=== PATIENT | female | born 1950 | race Caucasian/White ===

== ENCOUNTER 2017-03-31 05:13 | Emergency (ER) | payer OTHER ==
[~2017-03-31] VITALS: Ht 152.4 cm; Wt 81.0 kg
[~2017-03-31 05:13] MED LIST: CYCL-319 PO; HYDR-3498 PO; IBUP-1542 PO
[2017-03-31 05:16] VITALS: Ht 152.4 cm; Wt 81.0 kg
--- NOTE | 2017-03-31 06:44 | ERD ---
ER Documentation Chief Complaint Date/Time DATE: 03/31/17 TIME: 06:42 Chief Complaint Pt reports L flank pain since 1800 03/30/17 HPI 66-year-old female who presents emergency department for left flank pain started last night at around 6 PM. Stated that her left flank pain radiates to her left upper abdomen/mid epigastric area. Denies any trauma. Vomited thrice for the past 24 hours with nonbilious and nonbloody vomitus. Denies headache, loss of consciousness, dizziness, blurry vision, changes in vision, photophobia, facial pain, ear pain, throat pain, difficulty swallowing, neck pain, shoulder pain, chest pain, cough, hemoptysis, loss of appetite, hematochezia, diarrhea, constipation, urinary symptoms, , the possibility of being , bladder and bowel incontinences, extremity weakness, extremity tenderness, numbness or tingling sensation, difficulty walking, recent travel, recent exposure to illness, recent antibiotic use in the last 3 months, fever, chills. Allergy: No known drug allergies. PMH: Hypertension. Family medical history: Denies. Medications: Enalapril. Also takes Rumiquin, a cardiovascular supplement. Surgery: Hysterectomy. Primary Social History: Retired. Denies smoking, use of alcohol, use of illegal drugs. ROS All systems reviewed and are negative except as per history of present illness. Medications Home Meds Active Scripts Acetaminophen* (Tylophen*) 500 Mg Capsule, 1 CAP PO Q6H Y for PAIN AND OR ELEVATED TEMP, #20 CAP Prov:PRAVEENA SUN 03/31/17 Ondansetron Hcl* (Zofran*) 4 Mg Tablet, 4 MG PO Q8H Y for NAUSEA AND/OR VOMITING , #30 TAB Prov:PASILAPRAVEENA CHAMORRO F 03/31/17 Tramadol HCl (Tramadol HCl) 50 Mg Tablet, 50 MG PO Q4 Y for PAIN, #20 TAB Prov:JAMESILAPRAVEENA CHAMORRO F 03/31/17 Hydrocodone Bit-Acetaminophen* ([place]*) 5-325 Mg Tab, 1 TAB PO Q6 Y for PAIN, # 20 TAB Prov:LAVON VIRAMONTES MD 05/26/15 Cyclobenzaprine Hcl* (Cyclobenzaprine Hcl*) 10 Mg Tablet, 10 MG PO TID, #20 TAB Prov:LAVON VIRAMONTES MD 05/26/15 Hydrocodone Bit-Acetaminophen* ([place]*) 5-325 Mg Tab, 1 TAB PO Q6 Y for PAIN, # 20 TAB Prov:LAVON VIRAMONTES MD 04/13/15 Ibuprofen* (Motrin*) 600 Mg Tab, 600 MG PO Q6, #30 TAB Prov:LAVON VIRAMONTES MD 04/13/15 Hydrocodone Bit-Acetaminophen* ([place]*) 5-325 Mg Tab, 1 TAB PO Q6 Y for PAIN, # 10 TAB Prov:ELVIA ABREU C 04/09/15 Ibuprofen* (Motrin*) 600 Mg Tab, 600 MG PO Q6, #30 TAB Prov:LOIS,ELVIA C 04/09/15 Allergies Allergies: Coded Allergies: No Known Allergy (Unverified , 04/13/15) PMhx/Soc Medical and Surgical Hx: pt denies Medical Hx History of Surgery: Yes (HYSTERECTOMY ) Anesthesia Reaction: No Hx Neurological Disorder: No Hx Respiratory Disorders: No Hx Cardiac Disorders: Yes (HTN) Hx Psychiatric Problems: No Hx Miscellaneous Medical Probl: No Hx Alcohol Use: No Hx Substance Use: No Hx Tobacco Use: No Physical Exam Vitals Vital Signs Date Time Temp Pulse Resp B/P Pulse Ox O2 Delivery O2 Flow Rate FiO2 03/31/17 05:16 97.8 99 18 137/92 100 Physical Exam CONSTITUTIONAL: Well-appearing; well-nourished; in no apparent distress. HEAD: Normocephalic; atraumatic. EYES: Conjunctiva clear, sclera non-icteric, EOM intact. PERRL Ears: Hearing intact. EACs clear, TMs non-bulging, non-inflamed, translucent & mobile, ossicles normal appearance, No obstructions, no erythema, no discharges Nose: No obstructions. No polyps. No external lesions. Mucosa non-inflamed. No external lesions, septum and turbinates normal. No rhinorrhea. No discharges. Frontal sinus is non-tender to palpation. Maxillary sinus is non-tender to palpation. MOUTH: Moist mucous membranes, no lesion, no obstructions, no vesicles, no thrush, patent airway Throat: Uvula in midline. Right tonsil is +1 with no erythema, no exudate. Left tonsil is +1 with no erythema, no exudate. Tolerating secretions well. Good gag reflex. Patent airway. Neck: Supple, without lesions, bruits, or adenopathy. No mass. Thyroid non- enlarged and non-tender to palpation. CHEST: Symmetrical chest. Respirations even and not labored. No retractions noted. CARDIOVASCULAR: Normal S1, S2. RRR. No murmurs, gallops. RESPIRATORY: Normal chest excursion with respiration; breath sounds clear and equal bilaterally; no wheezes, rhonchi, or rales. Breathing even and unlabored. Speaking in clear, full, and complete sentences w/ ease. ABDOMEN: Normal bowel sounds normal. Soft, round, non-distended, non-guarding, no tenderness, no rebound, no organomegaly, no masses, no pulsating abdominal mass. No hernia. No peritoneal signs. : Left-sided CVA tenderness on palpation. BACK: Symmetrical shoulder. Spine is midline without deformity, tenderness. No evidence of trauma or deformity. PELVIS: Stable pelvis. No evidence of trauma or deformity. MUSCULOSKELETAL: Normal gait and station. No misalignment, asymmetry, crepitation, defects, tenderness, masses, effusions, decreased range of motion, instability, atrophy or abnormal strength or tone in the head, neck, spine, ribs , pelvis or extremities. No calf tenderness. NEUROVASCULAR: Distal pulses are present. Pedal pulse are present, equal, and normal. Capillary refills are < 2 seconds. NEUROLOGIC: Alert and oriented x4. Speaks full and clear sentences. Cranial Nerves II-XII normal. Sensation to pain, touch, and proprioception normal. Grossly unremarkable. No neurologic deficits. Romberg test is negative. PSYCHOLOGICAL: The patients mood and manner are appropriate. No hallucinations , delusions. Not SI. Not HI. Has the capacity to decide for self SKIN: Normal for age and ethnicity; warm; dry; good turgor; no apparent lesions or exudates. No rashes, hives, discoloration. Intact. Result Diagram: 03/31/17 0645 03/31/17 0645 Results 24 hrs Laboratory Tests Test 03/31/17 06:45 03/31/17 07:08 White Blood Count 10.910^3/ul Red Blood Count 4.6510^6/ul Hemoglobin 12.5g/dl Hematocrit 39.2% Mean Corpuscular Volume 84.3fl Mean Corpuscular Hemoglobin 26.9pg Mean Corpuscular Hemoglobin Concent 31.9g/dl Red Cell Distribution Width 14.5% Platelet Count 39592^3/UL Mean Platelet Volume 11.1fl Neutrophils % 75.4% Lymphocytes % 18.3% Monocytes % 4.8% Eosinophils % 0.7% Basophils % 0.4% Nucleated Red Blood Cells % 0.0/100WBC Neutrophils # 8.310^3/ul Lymphocytes # 2.010^3/ul Monocytes # 0.510^3/ul Eosinophils # 0.110^3/ul Basophils # 0.010^3/ul Nucleated Red Blood Cells # 0.010^3/ul Prothrombin Time 12.8Sec Prothrombin Time Ratio 1.0 INR International Normalized Ratio 0.96 Activated Partial Thromboplast Time 29.2Sec Sodium Level 144mmol/L Potassium Level 4.3mmol/L Chloride Level 104mmol/L Carbon Dioxide Level 25mmol/L Anion Gap 19 Blood Urea Nitrogen 14mg/dl Creatinine 0.66mg/dl Glucose Level 135mg/dl Calcium Level 9.8mg/dl Total Bilirubin 0.3mg/dl Direct Bilirubin 0.00mg/dl Indirect Bilirubin 0.3mg/dl Aspartate Amino Transf (AST/SGOT) 33IU/L Alanine Aminotransferase (ALT/SGPT) 29IU/L Alkaline Phosphatase 168IU/L Troponin I < 0.012ng/ml Total Protein 8.6g/dl Albumin 4.3g/dl Globulin 4.30g/dl Albumin/Globulin Ratio 1.00 Amylase Level 63U/L Lipase 55U/L Urine Color STRAW Urine Clarity CLEAR Urine pH 6.0 Urine Specific [place] 1.006 Urine Ketones NEGATIVEmg/dL Urine Nitrite NEGATIVEmg/dL Urine Bilirubin NEGATIVEmg/dL Urine Urobilinogen NEGATIVEmg/dL Urine Leukocyte Esterase NEGATIVELeu/ul Urine Microscopic RBC 1/HPF Urine Microscopic WBC 1/HPF Urine Bacteria FEW/HPF Urine Hemoglobin 2+mg/dL Urine Glucose NEGATIVEmg/dL Urine Total Protein NEGATIVEmg/dl Current Medications Medications (Trade) Dose Ordered Sig/Rj Route PRN Reason Start Time Stop Time Status Last Admin Dose Admin Ondansetron HCl (Zofran Inj) 4 mg ONCE STAT IV 03/31/17 06:46 03/31/17 06:50 DC 03/31/17 07:15 Morphine Sulfate 4 mg 4 mg ONCE STAT IV 03/31/17 06:46 03/31/17 06:50 DC 03/31/17 07:15 Sodium Chloride (NS) 100 ml @ ud STK-MED ONCE .ROUTE 03/31/17 08:18 03/31/17 08:19 DC Iohexol 150 ml 150 ml STK-MED ONCE .ROUTE 03/31/17 08:18 03/31/17 08:19 DC Sodium Chloride (NS) 500 ml @ 500 mls/hr Q1H ONCE IV 03/31/17 10:00 03/31/17 10:59 DC 03/31/17 10:55 Procedures/MDM Examination: See physical examination. Disease process, medical treatment was explained to the patient and family member. They verbalized understanding and agreed with the diagnostic tests, medical treatment, and follow-up care. EKG: Normal sinus rhythm with a ventricular rate of 79 bpm. No evidence of acute myocardial infarction. No evidence of ischemia. Radiology: CT of the abdomen and pelvis with IV contrast Impression: Mildly obstructive 3 mm calculus within the left distal ureter at the ureterovesicular junction with mild dilatation of the upstream left ureter with mild left hydronephrosis. Mild left emmie-nephric fat stranding. Few 2 mm calculi within the inferior pole of the right kidney without hydronephrosis. Diverticulosis without evidence of acute diverticulitis. Mild to moderate atherosclerotic vascular disease. Post surgical changes suggestive prior hysterectomy. Several subacute acute/subacute chronic to chronic fractures of the pelvis, thoracic vertebral bodies, and ribs as described above. Chest x-ray Impression: 1.1 cm nodular calcified density projected over the left lower lung is likely related to the adjacent rib and may represent callus formation from previous rib fracture. Atherosclerotic aortic calcification. Otherwise no acute cardiopulmonary disease. Blood works: Reviewed. Urinalysis: Reviewed. Treatment: IV insertion. Zofran. Normal saline 500 cc IV bolus. Re-evaluation: Denies headache, dizziness, blurry vision, neck pain, shoulder pain, chest pain, back pain, abdominal pain, nausea, vomiting. No episode of emesis in the emergency department. Alert and oriented 4. Speaks full and clear sentences. Respirations even and unlabored. Lung sounds clear to auscultation. Active bowel sounds. There is no right upper/right lower/ epigastric/left upper/left lower abdominal tenderness and light and deep palpation. Negative on Rovsings sign. Negative [place] sign. No peritoneal signs. Ambulatory with steady gait. No neurovascular deficits. No neurological deficits. Consultation: None. Differential diagnosis: Acute myocardial infarction versus acute coronary syndrome versus pancreatitis versus cholecystitis versus nephrolithiasis versus pyelonephritis versus sciatica versus musculoskeletal spasms Medical decision makin-year-old female who presents emergency department for left flank pain started last night at around 6 PM. Stated that her left flank pain radiates to her left upper abdomen/mid epigastric area. Denies any trauma. Vomited thrice for the past 24 hours with nonbilious and nonbloody vomitus. Patient's complaint, patient history about her complaint, my physical findings, diagnostic test results, my reevaluation are consistent my final diagnosis of ureteral calculus, diverticulosis, old rib fracture, abdominal pain. Case and diagnostic tests results was discussed with supervising physician , Dr. Lavon Viramontes who agreed with my medical decision making. Medications prescribed are the following: Tramadol. Zofran. Patient and family member are made aware of the side effects and adverse reactions of the medications prescribed. Instructed on when to seek emergent and medical attention in case allergic/anaphylactic reactions or severe side effects and or adverse reactions to medications. Patient and family member verbalized understanding. Patient instructed Instructed to follow-up with his PCP in 24-48 hours. PCP to refer patient to a urologist next 24-48 hours. Instructed to Call 911 for chest pain, shortness of breath. Advised to come back here in ED as soon as possible for severity of symptoms which includes but not limited to: any new symptoms; shortness of breath/difficulty of breathing; cardiovascular changes; severe gastrointestinal symptoms; signs and symptoms of bleeding and or infection; signs of compartment syndrome/neurovascular changes; neurological changes/deficits. Patient and family member verbalized understanding. Upon discharge, patient is alert and oriented x 4, speaks full and clear sentences, denies pain, has no neurological deficits, has no neurovascular deficits, difficulty of breathing. Breathing even and unlabored. Lung sounds are clear to auscultation. Not in distress. Appears comfortable. Ambulatory with steady gait. Appears satisfied with care provided here in ED. Departure Diagnosis: Primary Impression: Flank pain Additional Impressions: Ureteral calculi Nephrolithiasis Condition: Stable Additional Instructions: Instructed to follow-up with his PCP in 24-48 hours. PCP to refer patient to a urologist next 24-48 hours. Instructed to Call 911 for chest pain, shortness of breath. Advised to come back here in ED as soon as possible for severity of symptoms which includes but not limited to: any new symptoms; shortness of breath/difficulty of breathing; cardiovascular changes; severe gastrointestinal symptoms; signs and symptoms of bleeding and or infection; signs of compartment syndrome/neurovascular changes; neurological changes/deficits. Patient and family member verbalized understanding. PRAVEENA SUN Mar 31, 2017 06:44
[2017-03-31] MEDS ORDERED: morphine 4 MG/ML VIAL IV STA (06:46)
[2017-03-31] MEDS ORDERED: ONDANSETRON 4 MG INJ IV STA (06:46)
[2017-03-31 07:41] LABS: ADD SCAN DIFF NO
[2017-03-31 07:43] LABS: BASOPHILS % 0.4 % (0.0-2.0); EOSINOPHILS # 0.1 10^3/ul (0.0-0.5); EOSINOPHILS % 0.7 % (0.0-7.0); HEMATOCRIT 39.2 % (37.0-47.0); HEMOGLOBIN 12.5 g/dl (12.0-16.0); LYMPHOCYTES % 18.3 % (15.0-51.0); MEAN CORPUSCULAR HEMOGLOBIN 26.9 pg (29.0-33.0); MEAN CORPUSCULAR HGB CONC 31.9 g/dl (32.0-37.0); MEAN CORPUSCULAR VOLUME 84.3 fl (82.0-101.0); MEAN PLATELET VOLUME 11.1 fl (7.4-10.4); MONOCYTE # 0.5 10^3/ul (0.3-0.9); MONOCYTES % 4.8 % (0.0-11.0); NEUTROPHIL # 8.3 10^3/ul (1.6-7.5); NEUTROPHILS % 75.4 % (39.0-77.0); PLATELET COUNT 432 10^3/UL (140-415); RED BLOOD COUNT 4.65 10^6/ul (4.20-5.40); RED CELL DISTRIBUTION WIDTH 14.5 % (11.5-14.5); WHITE BLOOD COUNT 10.9 10^3/ul (4.8-10.8)
[2017-03-31 07:51] LABS: ADD UMIC YES; UR ASCORBIC ACID NEGATIVE (NEGATIVE); UR BACTERIA FEW /HPF (NONE SEEN); UR BILIRUBIN (Dip) NEGATIVE (NEGATIVE); UR BLOOD (Dip) 2+ mg/dL (NEGATIVE); UR CLARITY CLEAR (CLEAR); UR COLOR STRAW (YELLOW); UR GLUCOSE (Dip) NEGATIVE (NEGATIVE); UR KETONES (Dip) NEGATIVE (NEGATIVE); UR LEUKOCYTE ESTERASE (Dip) NEGATIVE Leu/ul (NEGATIVE); UR NITRITE (Dip) NEGATIVE (NEGATIVE); UR RBC 1 /HPF (0-5); UR SPECIFIC GRAVITY (Dip) 1.006 (1.003-1.030); UR TOTAL PROTEIN (Dip) NEGATIVE (NEGATIVE); UR UROBILINOGEN (Dip) NEGATIVE (NEGATIVE)
[2017-03-31 07:59] LABS: INR 0.96; PARTIAL THROMBOPLASTIN TIME 29.2 Sec (25.0-35.0); PROTIME 12.8 Sec (12.2-14.2)
[2017-03-31 08:02] LABS: ALANINE AMINOTRANSFERASE 29 IU/L (13-69); ALBUMIN 4.3 g/dl (3.3-4.9); ALKALINE PHOSPHATASE 168 IU/L (42-121); AMYLASE 63 U/L (11-123); ANION GAP 19 (8-16); ASPARTATE AMINO TRANSFERASE 33 IU/L (15-46); BILIRUBIN,INDIRECT 0.3 mg/dl (0-1.1); BILIRUBIN,TOTAL 0.3 mg/dl (0.2-1.3); BLOOD UREA NITROGEN 14 mg/dl (7-20); CALCIUM 9.8 mg/dl (8.4-10.2); CARBON DIOXIDE 25 mmol/L (21-31); CHLORIDE 104 mmol/L (97-110); CREATININE 0.66 mg/dl (0.44-1.00); GLUCOSE 135 mg/dl (70-220); POTASSIUM 4.3 mmol/L (3.5-5.1); SODIUM 144 mmol/L (135-144); TOTAL PROTEIN 8.6 g/dl (6.1-8.1)
[2017-03-31 08:14] LABS: TROPONIN-I < 0.012 ng/ml (0.00-0.12)
[2017-03-31] MEDS ORDERED: IOHEXOL 300MG/ML 150 ML BTL ONE (08:18)
[2017-03-31] MEDS ORDERED: SOD CHLORIDE 0.9% 100 ML ONE (08:18)
--- NOTE | 2017-03-31 08:36 | RADRPT ---
PROCEDURE: Chest x-ray CLINICAL INDICATION: Abdominal and chest pain TECHNIQUE: Chest single view COMPARISON: None FINDINGS: The heart is normal in size. The pulmonary vessels are normal in caliber. There is mild atheroscler otic aortic calcification. A 1.1 cm calcified nodular densities in the left lower lung likely relat ed to the adjacent rib. Lungs otherwise clear. Costophrenic angles sharp. The bony thorax is unre markable. IMPRESSION: 1. 1.1 cm nodular calcified density projected over the left lower lung is likely related to the adj acent rib and may represent callus formation from previous rib fracture.. 2. Atherosclerotic aortic calcification. 3. Otherwise no acute cardiopulmonary disease RPTAT: HH .Anant Basurto MD, MD Date Time Electronically viewed and signed by .Anant Basurto MD, on 03/31/2017 08:36 .W/
--- NOTE | 2017-03-31 09:00 | RADRPT ---
PROCEDURE: CT Abdomen and Pelvis with contrast. CLINICAL INDICATION: Abdominal pain with flank pain and chest pain. TECHNIQUE: CT scan of the abdomen and pelvis with contrast was performed following the uncomplicat ed intravenous administration of 100 ml of Omnipaque-300. About 50 mm of contrast leakage documente d. Coronal and sagittal reformatted images were obtained from the axial source images. Images were reviewed on a high-resolution PACS workstation. The total exam DLP equals 2261 mGy-cm. One or more of the following dose reduction techniques were used: Automated exposure control Adjustment of the mA and/or kV according to patient size. Use of iterative reconstruction technique. COMPARISON: None. FINDINGS: The lung bases are clear. The heart size is normal. Mild atherosclerotic calcifications are visual ized within the aortic arch and coronary arteries. The aorta and its branches are normal in size an d caliber with mild to moderate atherosclerotic calcifications. The liver is unremarkable, without mass, periportal edema or ductal dilatation. The portal, superior mesenteric, splenic veins are patent. The gallbladder is unremarkable, without cholelithiasis. The spleen, pancreas, and adrenal glands are unremarkable. There is a mildly obstructive calculus within the left distal ureter at the ureterovesical junction measuring about 3 mm on axial image 155 series 4. There is mild dilatation of the upstream left ure ter with mild left hydronephrosis. Mild left perinephric fat stranding is also present. There are a few 2 mm calculi within the inferior pole of the right kidney without hydronephrosis. The right u reter is normal in course and caliber without a calculus. A small parapelvic cyst is visualized with in the left kidney. There is also a cortically based sub-centimeter cyst within the right kidney. The distal esophagus is unremarkable. The stomach is decompressed. Small bowel loops are normal in caliber, without evidence of small bowel obstruction. There are several diverticula within the javi cending and sigmoid colon without evidence for diverticulitis. The appendix is visualized and is un remarkable. There is no free intraperitoneal fluid or pneumoperitoneum. No mesenteric or retroperitoneal lymphadenopathy is present. The bladder is partially distended and grossly unremarkable. The uterus is not visualized which may be from prior hysterectomy. The bilateral adnexa are unremarkable. No free fluid is visualized wi thin the pelvis. There is a mildly displaced fracture of the right inferior pubic ramus without significant bony brid ging. There is also a mildly displaced fracture of the anterior column of the right acetabulum. Th ere is an old fracture of the bilateral sacral ala superiorly with sclerosis. There is also scleros is of the left pubic bone which may be from prior trauma. There is a severe compression fracture of the T11 vertebral body with prominent anterior wedging and sclerosis, likely chronic. A mild compr ession deformity of the T8 vertebral body is also present. There are several old fractures of the r ight lateral fifth through eighth ribs and left fourth through ninth ribs. The abdominal wall is un remarkable. RPTAT: EE IMPRESSION: 1. Mildly obstructive 3 mm calculus within the left distal ureter at the ureterovesical junction wi th mild dilatation of the upstream left ureter with mild left hydronephrosis. Mild left perinephric fat stranding. 2. Few 2 mm calculi within the inferior pole of the right kidney without hydronephrosis. 3. Diverticulosis without evidence of diverticulitis. 4. Mild to moderate atherosclerotic vascular disease. 5. Postsurgical changes suggestive of prior hysterectomy. 6. Several subacute/subchronic to chronic fractures of the pelvis, thoracic vertebral bodies, and r ibs as described above. .Marly Mcpherson MD, MD Date Time Electronically viewed and signed by .Marly Mcpherson MD, on 03/31/2017 09:05 .T/
[2017-03-31] MEDS ORDERED: ACET500C5 PO (09:38)
[2017-03-31] MEDS ORDERED: TRAM50TA2 PO (09:38)
[2017-03-31] MEDS ORDERED: ONDA4TAB8 PO (09:38)
[2017-03-31] MEDS ORDERED: SOD CHLORIDE 0.9% 500 ML IV ONE (10:00)
== END 2017-03-31 11:45 | disposition home or self-care (01) ==
LOC: FTE 05:13
DX: R10.9 Unspecified abdominal pain (principal); N20.2 Calculus of kidney with calculus of ureter; I10 Essential (primary) hypertension; R11.10 Vomiting, unspecified
CPT/HCPCS: 71020; 74177; 80053; 81001; 82150; 83690; 84484; 85025; 85610; 85730; 87086; 93005; J2270; J2405; J7040; Q9967; 96374; 96375